=== PATIENT | female | born 1960 | race Caucasian/White ===

== ENCOUNTER 2016-11-04 12:38 | Outpatient (CLI) | payer OTHER ==
--- NOTE | 2016-11-04 14:35 | Diagnostic Imaging Report ---
Ultrasound left breast HISTORY: Congenital malformation, Mass. Sonographic sector images were obtained through the quadrants of the left breast. The exam demonstrates an approximate 0.3 x 0.4 cm hypoechoic nodule in the 3:00 periareolar region of the left breast. No other focal lesions. IMPRESSION: 1. Subcentimeter sonolucent lesions most likely related to cysts as noted above. No other significant abnormal masses.
--- NOTE | 2016-11-04 14:36 | Diagnostic Imaging Report ---
Right breast ultrasound HISTORY: Congenital malformation, Mass. Sonographic sector images were obtained through the quadrants of the right breast. The exam demonstrates an approximate 0.3 x 0.4 cm sonolucent lesion in the lateral periareolar area. A 0.2 x 0.3 cm sonolucent lesion is also noted in the 9:00 periareolar area. Findings consistent small cysts. No other abnormal masses. IMPRESSION: 1. Findings consistent with small (subcentimeter) cysts as noted above.
== END 2016-11-04 13:30 | disposition home or self-care (01) ==
LOC: RAD 12:38 → EEVIPCON 12:38 → RAD 13:30
DX: R92.8 Other abnormal and inconclusive findings on diagnostic imaging of breast (principal)
CPT/HCPCS: 76642

== ENCOUNTER 2017-10-06 19:45 | Outpatient (CLI) | payer OTHER ==
[2017-10-06 20:10] LABS: % BASOPHILS 0.6 % (0.0-2.0); % EOSINOPHILS 2.8 % (0.0-5.0); % LYMPHOCYTES 43.2 % (20.0-50.0); % MONOCYTES 8.8 % (2.0-10.0); % NEUTROPHILS 44.6 % (40.0-80.0); EOSINOPHILE ABSOLUTE 0.2 Th/cmm (0.1-0.4); HEMATOCRIT 40.3 % (41.0-60); HEMOGLOBIN 13.9 gm/dL (12-16); LYMPHOCYTE ABSOLUTE 3.4 Th/cmm (1.5-3.0); MEAN CELL VOLUME 88.2 fl (81-100); MEAN CORPUSCULAR HEMOGLOBIN 30.5 pg (27.0-31.0); MEAN CORPUSCULAR HGB CONC 34.5 pg (28.0-36.0); MEAN PLATELET VOLUME 7.4 fl; MONOCYTE ABSOLUTE 0.7 Th/cmm (0.3-1.0); NEUTROPHILE ABSOLUTE 3.6 Th/cmm (1.8-8.0); PLATELET COUNT 286 Th/cmm (150-400); RED BLOOD COUNT 4.56 Mil/cmm (3.80-5.10); RED CELL DISTRIBUTION WIDTH 11.7 % (11.5-20.0); WHITE BLOOD COUNT 7.9 Th/cmm (4.8-10.8)
[2017-10-06 20:27] LABS: ALB/GLOB RATIO 1.3 (1.0-1.8); ALBUMIN 4.4 gm/dL (3.7-5.3); ALKALINE PHOSPHATASE 98 U/L (34-104); ANION GAP 10.8 (7.0-16.0); BILIRUBIN,TOTAL 0.3 mg/dL (0.3-1.0); BUN - UREA NITROGEN 19 mg/dL (7-25); CALCIUM SERUM 10.2 mg/dL (8.6-10.3); CARBON DIOXIDE 26.1 mEq/L (21.0-31.0); CHLORIDE 105 mEq/L (98-107); CREATININE - SERUM 0.7 mg/dL (0.6-1.2); GFR AFRICAN-AMERICAN > 60.0 ml/min (>90); GFR NON AFRICAN-AMERICAN > 60.0 ml/min; GLUCOSE 105 mg/dL (70-105); POTASSIUM SERUM 3.9 mEq/L (3.5-5.1); SGOT 15 U/L (13-39); SGPT/ALT 18 U/L (7-52); SODIUM SERUM 138 mEq/L (136-145); TOTAL PROTEIN,SERUM 7.8 gm/dL (6.0-8.3)
== END 2017-10-06 20:15 | disposition home or self-care (01) ==
LOC: LAB 19:45
DX: Z00.01 Encounter for general adult medical examination with abnormal findings (principal); G56.02 Carpal tunnel syndrome, left upper limb; K05.10 Chronic gingivitis, plaque induced; M76.31 Iliotibial band syndrome, right leg; Q83.9 Congenital malformation of breast, unspecified
CPT/HCPCS: 36415-UA; 80053-TC; 82306-90; 82607-90; 84443-TC; 85025-TC

== ENCOUNTER 2018-06-11 17:50 | Emergency (ER) | payer OTHER ==
[2018-06-11] MEDS ORDERED: APAP/Codeine 300 mg/30 mg Tab PO STA (18:25)
[2018-06-11] MEDS ORDERED: APAP/Codeine 300 mg/30 mg Tab ONE (18:28)
--- NOTE | 2018-06-11 19:09 | ED Physician Chart ---
ED Chief Complaint/HPI - Patient Information Date Seen:: 06/11/18 Time Seen:: 18:00 Chief Complaint:: Left Knee Pain History of Present Illness:: onset x one day of left knee pain; Hx of Prieto's Cyst; pt has old left knee injury under the care of an Orthopedist; no new injuries Allergies:: Allergies Allergy/AdvReac Type Severity Reaction Status Date / Time No Known Allergies Allergy Verified 06/11/18 18:06 Vitals:: Vital Signs - 8 hr 06/11/18 18:03 Temp 97.6 F HR 85 RR 20 BP 132/82 O2 Sat % 94 ED Review of Systems - Review of Systems General/Constitutional: No fever, No chills, No weight loss, No weakness, No diaphoresis, No edema, No loss of appetite Skin: No skin lesions, No rash, No bruising Head: No headache, No light-headedness Eyes: No loss of vision, No pain, No diplopia ENT: No earache, No nasal drainage, No sore throat, No tinnitus Neck: No neck pain, No swelling, No thyromegaly, No stiffness, No mass noted Cardio Vascular: No chest pain, No palpitations, No PND, No orthopnea, No edema Pulmonary: No SOB, No cough, No sputum, No wheezing GI: No nausea, No vomiting, No diarrhea, No pain, No melena, No hematochezia, No constipation, No hematemesis G/U: No dysuria, No frequency, No hematuria, No nacturia [employer]: No vaginal discharge, No abnormal vaginal bleed, No contraction Musculoskeletal: Bone or joint pain, No back pain, Muscle pain Endocrine: No polyuria, No polydipsia Psychiatric: No prior psych history, No depression, No anxiety, No suicidal ideation, No homicidal ideation, No auditory hallucination, No visual hallucination Hematopoietic: No bruising, No lymphadenopathy Allergic/Immuno: No urticaria, No angioedema Neurological: No syncope, No focal symptoms, No weakness, No paresthesia, No headache, No seizure, No dizziness, No confusion, No vertigo ED Past Medical History - Past Medical History Obtainable: Yes Past Medical History: Arthritis Family History: None Social History: Non Smoker, No Alcohol, No Drug Use, , Employed Surgical History: None Psychiatricy History: None Medication: Reviewed Family Medical History - Family Member Father Age: 70 Ethnicity: Non- Living Status: Hx Family Cancer: Yes (Lung) Mother Age: 76 Ethnicity: Non- Living Status: Still Living Hx Family Cancer: Yes (Breast) Hx Family Congestive Heart Failure: Yes Other Medical History: Polycythemia ED Physical Exam - Physical Examination General/Constitutional: Awake, Well-developed, well-nourished, Alert, No distress, GCS 15, Non-toxic appearing, Ambulatory Head: Atraumatic Eyes: Lids, conjuctiva normal, PERRL, EOMI Skin: Nl inspection, No rash, No skin lesions, No ecchymosis, Well hydrated, No lymphadenopathy ENMT: External ears, nose nl, TM canals nl, Nasal exam nl, Lips, teeth, gums nl , Oropharynx nl, Tonsils nl Neck: Nontender, Full ROM w/o pain, No JVD, No nuchal rigidity, No bruit, No mass, No stridor Respiratory: Nl effort/Exclusion, Clear to Auscultation, No Wheeze/Rhonchi/Rales Cardio Vascular: RRR, No murmur, gallop, rubs, NL S1 S2, Carotid/Femoral/Distal pulses equal bilaterally GI: No tenderness/rebounding/guarding, No organomegaly, No hernia, Normal BS's, Nondistended, No mass/bruits, No McBurney tenderness : No CVA tenderness Extremities: No tenderness or effusion, Full ROM, normal strength in all extremities, No edema, Normal digits & nails Other Extremities comments:: Left Knee Tenderness Neuro/Psych: Alert/oriented, DTR's symmetric, Normal sensory exam, Normal motor strength, Judgement/insight normal, Mood normal, Normal gait, No focal deficits Misc: Normal back, No paraspinal tenderness ED Septic Shock - <6hrs of presentation: Vital Signs: Vital Signs - 8 hr 06/11/18 18:03 Temp 97.6 F HR 85 RR 20 BP 132/82 O2 Sat % 94
--- NOTE | 2018-06-11 19:11 | ED Physician Chart ---
ED Chief Complaint/HPI - Patient Information Date Seen:: 06/11/18 Time Seen:: 19:03 Chief Complaint:: lt knee pain History of Present Illness:: 57 yr old with popliteal cyst lt side Allergies:: Allergies Allergy/AdvReac Type Severity Reaction Status Date / Time No Known Allergies Allergy Verified 06/11/18 18:06 Vitals:: Vital Signs - 8 hr 06/11/18 18:03 Temp 97.6 F HR 85 RR 20 BP 132/82 O2 Sat % 94 ED Review of Systems - Review of Systems General/Constitutional: No fever, No chills, No weight loss, No weakness, No diaphoresis, No edema, No loss of appetite Skin: No skin lesions, No rash, No bruising Head: No headache, No light-headedness Eyes: No loss of vision, No pain, No diplopia ENT: No earache, No nasal drainage, No sore throat, No tinnitus Neck: No neck pain, No swelling, No thyromegaly, No stiffness, No mass noted Cardio Vascular: No chest pain, No palpitations, No PND, No orthopnea, No edema Pulmonary: No SOB, No cough, No sputum, No wheezing GI: No nausea, No vomiting, No diarrhea, No pain, No melena, No hematochezia, No constipation, No hematemesis G/U: No dysuria, No frequency, No hematuria Musculoskeletal: Bone or joint pain Endocrine: No polyuria, No polydipsia Psychiatric: No prior psych history, No depression, No anxiety, No suicidal ideation Hematopoietic: No bruising, No lymphadenopathy Allergic/Immuno: No urticaria, No angioedema Neurological: No syncope, No focal symptoms, No weakness, No paresthesia, No headache, No seizure, No dizziness, No confusion, No vertigo Family Medical History - Family Member Father Age: 70 Ethnicity: Non- Living Status: Hx Family Cancer: Yes (Lung) Mother Age: 76 Ethnicity: Non- Living Status: Still Living Hx Family Cancer: Yes (Breast) Hx Family Congestive Heart Failure: Yes Other Medical History: Polycythemia ED Physical Exam - Physical Examination Other Extremities comments:: lt knee pain ED Assessment - Assessment General Assessment: lt knee pain ED Septic Shock - . Is Septic Shock (SBP<90, OR Lactate>4 mmol\L) present?: No - <6hrs of presentation: Vital Signs: Vital Signs - 8 hr 06/11/18 18:03 Temp 97.6 F HR 85 RR 20 BP 132/82 O2 Sat % 94 ED Reassessment (Disposition) - Reassessment Reassessment:: lt knee pain - Patient Disposition Discharge/Transfer:: Home Condition at Disposition:: Stable
--- NOTE | 2018-06-12 08:43 | Diagnostic Imaging Report ---
Bilateral lower extremity Doppler venous ultrasound exam HISTORY: Pain/swelling Sonographic sector images were obtained through the deep venous systems of both legs. Associated Doppler data was obtained. The exam demonstrates patency of the common femoral, superficial femoral, popliteal, and posterior tibial veins bilaterally. Specifically, no thrombus is seen. There are normal compressibility and augmentation responses. IMPRESSION: Negative exam for deep vein thrombophlebitis.
== END 2018-06-11 23:55 | disposition home or self-care (01) ==
LOC: ER 17:50
DX: M25.562 Pain in left knee (principal); M19.90 Unspecified osteoarthritis, unspecified site
CPT/HCPCS: 99284; 96372; 93970; J1885; Z7502; Z7610